=== PATIENT | male | born 1930 | race Caucasian/White ===

== ENCOUNTER 2022-08-29 19:09 | Emergency (ER) | payer MEDICARE, BC ==
[~2022-08-29] VITALS: Ht 185.5 cm; Wt 78.0 kg
[2022-08-29 19:55] LABS: BASOPHILS # (AUTO) 0.1 10^3/uL (0.0-0.1); BASOPHILS % (AUTO) 1 % (0-10); EOSINOPHILS # (AUTO) 0.1 10^3/uL (0.0-0.3); EOSINOPHILS % (AUTO) 1 % (0-10); HEMATOCRIT 30 % (40-54); LYMPHOCYTES # (AUTO) 2.2 10^3/uL (1.0-4.0); LYMPHOCYTES % (AUTO) 14 % (12-44); MEAN CORPUSCULAR HEMOGLOBIN 31 pg (25-34); MEAN CORPUSCULAR HGB CONC 36 g/dL (32-36); MEAN CORPUSCULAR VOLUME 86 fL (80-99); MEAN PLATELET VOLUME 10.9 fL (9.0-12.2); MONOCYTES # (AUTO) 2.4 10^3/uL (0.0-1.0); MONOCYTES % (AUTO) 16 % (0-12); NEUTROPHILS # (AUTO) 10.1 10^3/uL (1.8-7.8); NEUTROPHILS % (AUTO) 68 % (42-75); PLATELET COUNT 230 10^3/uL (130-400)
[2022-08-29 20:10] LABS: ALBUMIN 3.1 GM/DL (3.2-4.5); POTASSIUM 3.6 MMOL/L (3.6-5.0)
[2022-08-29 20:13] LABS: INR 1.1 (0.8-1.4); PROTHROMBIN TIME PATIENT 14.7 SEC (12.2-14.7); TOTAL PROTEIN 8.1 GM/DL (6.4-8.2)
[2022-08-29 20:16] LABS: CREATININE SERUM 1.36 MG/DL (0.60-1.30)
[2022-08-29 20:18] LABS: HYPOCHROMASIA SLIGHT; LYMPHOCYTES % (MANUAL) 16 %; MONOCYTES % (MANUAL) 14 %; NEUTROPHILS % (MANUAL) 70 %
[2022-08-29 20:19] LABS: MAGNESIUM 1.7 MG/DL (1.6-2.4)
[2022-08-29 20:26] LABS: BILIRUBIN,TOTAL 17.2 MG/DL (0.1-1.0)
[2022-08-29 20:30] LABS: CLARITY,URINE CLEAR; COLOR,URINE YELLOW; GLUCOSE, URINE (UA) NEGATIVE (NEGATIVE); KETONES,URINE NEGATIVE (NEGATIVE); LEUKOCYTE ESTERASE ,URINE TRACE (NEGATIVE); NITRITE,URINE NEGATIVE (NEGATIVE); PROTEIN,URINE 1+ (NEGATIVE)
[2022-08-29] MEDS ORDERED: IOHEXOL 350 MG/ML 100 ML (OMNIPAQUE 350) VIAL IV ONE (20:45)
[2022-08-29] MEDS ORDERED: NS IV 1000 ML 1,000 ML IV SCH (20:45)
[2022-08-29] MEDS ORDERED: HOLD METFORMIN - RECEIVED CONTRAST 20 ML VIAL IV SCH (20:45)
[2022-08-29] MEDS ORDERED: NS 100 ML (IVPB) BAG IV ONE (20:45)
[2022-08-29 21:09] LABS: BACTERIA,URINE FEW /HPF; BILIRUBIN,URINE 3+ (NEGATIVE); RBC,URINE 0-2 /HPF
[2022-08-29 21:10] LABS: HYALINE CASTS, URINE 0-2 /LPF
--- NOTE | 2022-08-29 21:18 | Diagnostic Imaging Report ---
PROCEDURE: CT chest, abdomen and pelvis with contrast. TECHNIQUE: Multiple contiguous axial images were obtained through the chest, abdomen, and pelvis after the administration of intravenous contrast. Auto Exposure Controls were utilized during the CT exam to meet ALARA standards for radiation dose reduction. INDICATION: Fatigue and loss of appetite with jaundice. CT CHEST: There is no evidence of pulmonary mass or consolidation. Linear atelectasis or scarring is seen within the right middle lobe. There is dense coronary artery calcification. There is a moderate hiatal hernia. No significant pleural or pericardial fluid is identified and there is no evidence of pathologically enlarged adenopathy within the thorax. IMPRESSION: Mild to moderate hiatal hernia without acute abnormality or focal lesion seen within the chest. CT ABDOMEN/PELVIS: There is moderate intrahepatic and extrahepatic biliary ductal dilatation. Gallbladder is surgically absent. No definite stone is identified. There is no evidence of focal hepatic abnormality. Spleen contains several calcified granulomas. There is mild to moderate hiatal hernia. Pancreas is diffusely atrophic without evidence of discrete mass. No adrenal gland or focal renal lesion is identified. There is no free fluid seen within the abdomen or pelvis. Note is made of prostatomegaly. Unopacified bladder is unremarkable. There is no evidence of focal fluid collection or inflammation. There is moderate amount stool throughout the colon. Ectasia of abdominal aorta and iliac arteries is noted. IMPRESSION: 1. No definite acute abnormality is identified; however, there is biliary ductal dilatation. This may be related to previous cholecystectomy. If older studies are available, comparison would be useful. Correlation with laboratory values would also be of value. 2. Large colonic stool burden indicates constipation. Dictated by: Dictated on workstation # [id number]
--- NOTE | 2022-08-29 21:26 | ED General ---
General Chief Complaint: General Problems/Pain Stated Complaint: FATIGUE Nursing Triage Note: pt ambulatory to room. states he had labs drawn saturday when he started "to feel crummy." pt states he was sent here today by Dr Yeh. pt reports feeling increased tiredness and no appetite for 3 days. pt skin is a yellow hue and he states he noticed this starting 2 days ago. pt states he does not have a hx of liver problems but he was sent here by [facility] to get this checked. Source of Information: Patient Exam Limitations: No Limitations History of Present Illness Date Seen by Provider: Aug 29, 2022 Time Seen by Provider: 19:[address] Jerome is an 89-year-old gentleman who presents to the emergency room as referred by the [facility] clinic and Dr. Carlos Yeh for escalating hyperbilirubinemia and elevated transaminases. Bilirubin was 10.2 two days ago. Patient has a remote cholecystectomy many years ago. He comments his cholecystectomy was complicated by choledocholithiasis. He reports problems were first noted with his liver at the [place] a couple of years ago prior to the COVID-19 pandemic. He believes that the issue was lost to follow-up during pandemic times. He denies any pain, vomiting, diarrhea, or fever. Dr. Yeh engaged consultation with Dr. Erik Clifton, mold operator at [facility]. Tentative transfer was being discussed prior to his referral to the ER. There is concern about biliary obstruction, possible neoplasm, etc. Allergies and Home Medications Allergies Coded Allergies: Sulfa (Sulfonamide Antibiotics) (Verified Allergy, Unknown, 08/29/22) amoxicillin (Verified Allergy, Unknown, 08/29/22) Patient Home Medication List Home Medication List Reviewed: Yes Review of Systems Review of Systems Constitutional: no symptoms reported EENTM: no symptoms reported Respiratory: no symptoms reported Cardiovascular: no symptoms reported Gastrointestinal: see HPI Genitourinary: other (Dark urine) Musculoskeletal: no symptoms reported Skin: no symptoms reported Psychiatric/Neurological: No Symptoms Reported Hematologic/Lymphatic: No Symptoms Reported Immunological/Allergic: no symptoms reported Past Wkwwzzz-Sgexnv-Cbfdin Hx Patient Social History Tobacco Use?: No Smoking Status: Former Smoker Use of E-Cig and/or Vaping dev: No Substance use?: No Alcohol Use?: No Alcohol Frequency: Rarely Immunizations Up To Date Influenza Vaccine Up-to-Date: Yes; Up-to-Date Past Medical History Surgeries: Yes Abdominal (Hiatal hernia), Ear Surgery (Cataract), Gallbladder Respiratory: No Cardiac: Yes (Atherosclerosis) Atrial Fibrillation (Not anticoagulated), Hypertension Neuropathy Genitourinary: Yes Benign Prostatic Hyperpl Gastrointestinal: Yes (Gastroparesis) Diverticulosis, Gall Bladder Disease (Gallstones with choledocholithiasis status post cholecystectomy) Musculoskeletal: No Endocrine: Yes Diabetes, Non-Insulin dep HEENT: Yes Cataract Cancer: No Psychosocial: Yes Anxiety Integumentary: No Physical Exam Vital Signs Vital Signs - First Documented 08/29/22 08/30/22 19:32 01:24 Temp 36.9 Pulse 72 Resp 20 B/P (MAP) 160/98 (118) Pulse Ox 96 O2 Delivery Room Air Capillary Refill : Height, Weight, BMI Height: '" Weight: lbs. oz. kg; 22.00 BMI Method: General Appearance: No Apparent Distress, WD/WN HEENT: PERRL/EOMI, Normal ENT Inspection, Pharynx Normal, Scleral Icterus (L), Scleral Icterus (R) Neck: Normal Inspection; No JVD Respiratory: Chest Non Tender, Lungs Clear, Normal Breath Sounds Cardiovascular: No Edema, No Murmur, Irregularly Irregular Gastrointestinal: Normal Bowel Sounds, Non Tender, Soft; No Distended, No Mass Extremity: Normal Inspection, No Pedal Edema Neurologic/Psychiatric: Alert, Oriented x3, No Motor/Sensory Deficits, Normal Mood/Affect, sand cutter II-XII Norm as Tested Skin: Warm/Dry, Jaundice Focused Exam Lactate Level 08/29/22 22:15: Lactic Acid Level 1.73 Lactic Acid Level Laboratory Tests Test 08/29/22 22:15 Lactic Acid Level 1.73 MMOL/L (0.50-2.00) Progress/Results/Core Measures Suspected Sepsis SIRS Temperature: Pulse: 72 Respiratory Rate: 20 Laboratory Tests 08/29/22 19:49: White Blood Count 15.0H Blood Pressure 160 /98 Mean: 118 08/29/22 22:15: Lactic Acid Level 1.73 Laboratory Tests 08/29/22 19:49: Creatinine 1.36H, INR Comment 1.1, Platelet Count 230, Total Bilirubin 17.2*H Results/Orders Lab Results Laboratory Tests Test 08/29/22 19:49 08/29/22 20:24 11/9/22 22:15 Range/Units White Blood Count 15.0 H 4.3-11.0 10^3/uL Red Blood Count 3.54 L 4.30-5.52 10^6/uL Hemoglobin 11.0 L 13.3-17.7 g/dL Hematocrit 30 L 40-54 % Mean Corpuscular Volume 86 80-99 fL Mean Corpuscular Hemoglobin 31 25-34 pg Mean Corpuscular Hemoglobin Concent 36 32-36 g/dL Red Cell Distribution Width 15.2 H 10.0-14.5 % Platelet Count 230 130-400 10^3/uL Mean Platelet Volume 10.9 9.0-12.2 fL Immature Granulocyte % (Auto) 1 % Neutrophils (%) (Auto) 68 42-75 % Lymphocytes (%) (Auto) 14 12-44 % Monocytes (%) (Auto) 16 H 0-12 % Eosinophils (%) (Auto) 1 0-10 % Basophils (%) (Auto) 1 0-10 % Neutrophils # (Auto) 10.1 H 1.8-7.8 10^3/uL Lymphocytes # (Auto) 2.2 1.0-4.0 10^3/uL Monocytes # (Auto) 2.4 H 0.0-1.0 10^3/uL Eosinophils # (Auto) 0.1 0.0-0.3 10^3/uL Basophils # (Auto) 0.1 0.0-0.1 10^3/uL Immature Granulocyte # (Auto) 0.2 H 0.0-0.1 10^3/uL Neutrophils % (Manual) 70 % Lymphocytes % (Manual) 16 % Monocytes % (Manual) 14 % Hypochromasia SLIGHT Prothrombin Time 14.7 12.2-14.7 SEC INR Comment 1.1 0.8-1.4 Sodium Level 127 L 135-145 MMOL/L Potassium Level 3.6 3.6-5.0 MMOL/L Chloride Level 93 L 98-107 MMOL/L Carbon Dioxide Level 22 21-32 MMOL/L Anion Gap 12 5-14 MMOL/L Blood Urea Nitrogen 27 H 7-18 MG/DL Creatinine 1.36 H 0.60-1.30 MG/DL Estimat Glomerular Filtration Rate 50 BUN/Creatinine Ratio 20 Glucose Level 167 H 70-105 MG/DL Calcium Level 9.0 8.5-10.1 MG/DL Corrected Calcium 9.7 8.5-10.1 MG/DL Magnesium Level 1.7 1.6-2.4 MG/DL Total Bilirubin 17.2 *H 0.1-1.0 MG/DL Aspartate Amino Transf (AST/SGOT) 250 H 5-34 U/L Alanine Aminotransferase (ALT/SGPT) 252 H 0-55 U/L Alkaline Phosphatase 450 H 40-136 U/L C-Reactive Protein High Sensitivity 7.87 H 0.00-0.50 MG/DL Total Protein 8.1 6.4-8.2 GM/DL Albumin 3.1 L 3.2-4.5 GM/DL Lipase 5 L 8-78 U/L Urine Color YELLOW Urine Clarity CLEAR Urine pH 6.0 5-9 Urine Specific Kinde 1.025 H 1.016-1.022 Urine Protein 1+ H NEGATIVE Urine Glucose (UA) NEGATIVE NEGATIVE Urine Ketones NEGATIVE NEGATIVE Urine Nitrite NEGATIVE NEGATIVE Urine Bilirubin 3+ H NEGATIVE Urine Urobilinogen 1.0 < = 1.0 MG/DL Urine Leukocyte Esterase TRACE H NEGATIVE Urine RBC (Auto) NEGATIVE NEGATIVE Urine RBC 0-2 /HPF Urine WBC 5-10 H /HPF Urine Squamous Epithelial Cells 2-5 /HPF Urine Crystals NONE /LPF Urine Bacteria FEW H /HPF Urine Casts PRESENT /LPF Urine Hyaline Casts 0-2 H /LPF Urine Mucus NEGATIVE /LPF Urine Culture Indicated YES Lactic Acid Level 1.73 0.50-2.00 MMOL/L My Orders Orders - ELIZ CISNEROS MD Cbc With Automated Diff (08/29/22 19:24) Comprehensive Metabolic Panel (08/29/22 19:24) Hs C Reactive Protein (08/29/22 19:24) Lipase (08/29/22 19:24) Magnesium (08/29/22 19:24) Protime With Inr (08/29/22 19:24) Ua Culture If Indicated (08/29/22 19:24) Ed Iv/Invasive Line Start (08/29/22 19:24) Manual Differential (08/29/22 19:49) Ct Chest/Abdomen/Pelvis W (08/29/22 20:35) Ns Iv 1000 Ml (Sodium Chloride 0.9%) (08/29/22 20:45) Iohexol Injection (Omnipaque 350 Mg/Ml 1 (08/29/22 20:45) Received Contrast (Hold Metformin- Contr (08/29/22 20:45) Ns (Ivpb) (Sodium Chloride 0.9% Ivpb Bag (08/29/22 20:45) Urine Culture (08/29/22 20:24) Blood Culture (08/29/22 21:12) Sputum Culture (08/29/22 21:12) Vital Signs Adult Sepsis Patie Q15M (08/29/22 21:12) Remove Rings In Anticipation O (08/29/22 21:12) Lactic Acid Analyzer (08/29/22 21:12) Cefepime Injection (Maxipime Injection) (08/29/22 22:45) Medications Given in ED Current Medications Medications Dose Ordered Sig/Makenna Route Start Time Stop Time Status Last Admin Dose Admin Cefepime HCl 2000 mg/Sodium Chloride 50 ml @ 100 mls/hr ONCE ONCE IV 08/29/22 22:45 08/29/22 23:14 DC 08/29/22 22:52 100 MLS/HR Iohexol 100 ml ONCE ONCE IV 08/29/22 20:45 08/29/22 20:46 DC 08/29/22 20:51 80 ML Sodium Chloride 100 ml ONCE ONCE IV 08/29/22 20:45 08/29/22 20:46 DC 08/29/22 20:51 80 ML Vital Signs/I&O 08/29/22 08/30/22 19:32 01:24 Temp 36.9 Pulse 72 68 Resp 20 16 B/P (MAP) 160/98 (118) 134/80 Pulse Ox 96 96 O2 Delivery Room Air 08/30/22 00:00 Intake Total 1050 ml Balance 1050 ml Capillary Refill : Blood Pressure Mean: 118 Progress Note : Time: 00:42 Progress Note Labs were obtained as well as CT chest, abdomen and pelvis. Patient had leukocytosis, elevated CRP, and a suggestion of possible infection with mild pyuria. Abdominal infection or acute infectious cholangitis was not suspected based on abdominal exam. Blood cultures were obtained, and a dose of IV cefepime was administered as a precaution due to these lab findings. Consultation was sought with Dr. Erik Clifton, mold operator at [facility]. Unfortunately, [facility] does not have any bed availability for this patient. Dr. Clifton did recommend transfer tonight to a facility that can perform ERCP as patient does have rapidly rising bilirubin values. Patient is agreeable to transfer to [place]. Case was reviewed with Dr. Hernández who accepted transfer. Diagnostic Imaging Diagonstic Imaging: CT Plain Films/CT/US/NM/MRI: chest, abdomen, pelvis Comments CT chest, abdomen and pelvis viewed by me and report reviewed. See report below: NAME: SONIA JEROME [facility] REC#: [id number] PT STATUS: REG ER : 1930 PHYSICIAN: ELIZ CISNEROS MD ADMIT DATE: 08/29/22/ER Signed Date of Exam:08/29/22 CT CHEST/ABDOMEN/PELVIS W PROCEDURE: CT chest, abdomen and pelvis with contrast. TECHNIQUE: Multiple contiguous axial images were obtained through the chest, abdomen, and pelvis after the administration of intravenous contrast. Auto Exposure Controls were utilized during the CT exam to meet ALARA standards for radiation dose reduction. INDICATION: Fatigue and loss of appetite with jaundice. CT CHEST: There is no evidence of pulmonary mass or consolidation. Linear atelectasis or scarring is seen within the right middle lobe. There is dense coronary artery calcification. There is a moderate hiatal hernia. No significant pleural or pericardial fluid is identified and there is no evidence of pathologically enlarged adenopathy within the thorax. IMPRESSION: Mild to moderate hiatal hernia without acute abnormality or focal lesion seen within the chest. CT ABDOMEN/PELVIS: There is moderate intrahepatic and extrahepatic biliary ductal dilatation. Gallbladder is surgically absent. No definite stone is identified. There is no evidence of focal hepatic abnormality. Spleen contains several calcified granulomas. There is mild to moderate hiatal hernia. Pancreas is diffusely atrophic without evidence of discrete mass. No adrenal gland or focal renal lesion is identified. There is no free fluid seen within the abdomen or pelvis. Note is made of prostatomegaly. Unopacified bladder is unremarkable. There is no evidence of focal fluid collection or inflammation. There is moderate amount stool throughout the colon. Ectasia of abdominal aorta and iliac arteries is noted. IMPRESSION: 1. No definite acute abnormality is identified; however, there is biliary ductal dilatation. This may be related to previous cholecystectomy. If older studies are available, comparison would be useful. Correlation with laboratory values would also be of value. 2. Large colonic stool burden indicates constipation. Dictated by: Dictated on workstation # [id number] Dict: 08/29/222105 Trans: 08/29/222144 [id number] Interpreted by: ALEJANDRO HURLEY MD Electronically signed by: ALEJANDRO HURLEY MD 08/29/222144 Departure Impression Primary Impression: Biliary obstruction Additional Impressions: Urinary tract infection Qualified Codes: N39.0 - Urinary tract infection, site not specified Hyponatremia Leukocytosis Qualified Codes: D72.829 - Elevated white blood cell count, unspecified Disposition: XFER SHT-TRM HOSP Condition: Stable Transfer Transfer Reason: Exceeds level of care Time Spoke to Accepting Phy: 00:10 Transfer Progress Notes Transfer accepted to [facility] in [place] by Dr. Hernández. Transfer Facility: [facility] Method of Transfer: Air Copy Copies To 1: CARLOS YEH MD, JOSHUA T MD Aug 29, 2022 21:25
[2022-08-29] MEDS ORDERED: CEFEPIME INJECTION 2,000 MG in NS (IVPB) 50 ML IV ONE (22:45)
[2022-08-30 01:24] VITALS: BP 134/80
== END 2022-08-30 02:05 | disposition short-term general hospital (02) ==
LOC: ER 19:16
DX: K83.1 Obstruction of bile duct (principal); N39.0 Urinary tract infection, site not specified; E87.1 Hypo-osmolality and hyponatremia; Z87.891 Personal history of nicotine dependence; Z87.19 Personal history of other diseases of the digestive system; Z90.49 Acquired absence of other specified parts of digestive tract; Z88.2 Allergy status to sulfonamides; Z88.0 Allergy status to penicillin
CPT/HCPCS: 36415; 71260; 74177; 80053; 81000; 83605; 83690; 83735; 85007; 85027; 85610; 86141; 87040; 87088